=== PATIENT | male | born 1945 | race American Indian/Alaskan Native ===

== ENCOUNTER 2019-05-04 08:54 | Outpatient (CLI) | payer MEDICARE ==
--- NOTE | 2019-05-04 11:37 | Vascular Lab Report ---
RENAL ARTERIAL DOPPLER ULTRASOUND HISTORY: N27.9 SMALL KIDNEY,UNSPECIFIED COMPARISON: None. TECHNIQUE: Routine renal arterial doppler ultrasound performed using grayscale, color and pulsed dopp ler. FINDINGS: Abdominal Aorta: No significant abnormality. Suprarenal velocity is 62 cm/s. Right kidney: No significant abnormality. No hydronephrosis. Kidney measures 11.2 cm. Resistive index: 0.75 Right renal artery: Peak systolic velocity of 124 cm/s with eyxqh-vn-hkrunu ratio of less than 3.5 Right renal vein: Patent. Left kidney: The left kidney is atrophic with increased cortical echotexture. Kidney measures 7.8 cm . Resistive index: 0.55 Left renal artery: Peak systolic velocity of 73 cm/s with hktuz-lf-lzcymw ratio of less than 3.5 Left renal vein: Patent. Additional findings: None. IMPRESSION: Atrophic left kidney as described. Mildly elevated resistive indices in the right kidney measuring 0.75. Signer Name: Patrice Madrid Jr, MD Signed: 05/04/2019 11:32 AM Workstation Name: [id number]
== END 2019-05-04 08:55 | disposition home or self-care (01) ==
LOC: VAS 08:54
PROVIDERS: ATTEND Internal Medicine Nephrology
DX: N26.1 Atrophy of kidney (terminal) (principal); I11.0 Hypertensive heart disease with heart failure; I50.9 Heart failure, unspecified; E78.00 Pure hypercholesterolemia, unspecified; K21.9 Gastro-esophageal reflux disease without esophagitis; E11.9 Type 2 diabetes mellitus without complications; Z90.89 Acquired absence of other organs
CPT/HCPCS: 93975